=== PATIENT | female | born 1990 | race Caucasian/White ===

== ENCOUNTER 2018-06-15 18:35 | Emergency (ER) | payer SELFPAY ==
[~2018-06-15] VITALS: Ht 165.1 cm; Wt 72.6 kg
[2018-06-15] MEDS ORDERED: FAMOTIDINE 20 MG (PEPCID) TABLET PO STA (19:39)
[2018-06-15] MEDS ORDERED: LACTATED RINGERS 1,500 ML IV PRN (19:45)
[2018-06-15] MEDS ORDERED: KETOROLAC 30 MG/ML VIAL IVP ONE (19:45)
[2018-06-15] MEDS ORDERED: ANTACID SUSP 30 ML UDC (MYLANTA) PO ONE (19:45)
[2018-06-15] MEDS ORDERED: ONDANSETRON 4 MG/2 ML (SDV) Z0FRAN IVP ONE (19:45)
[2018-06-15] MEDS ORDERED: LIDOCAINE 2% VISCOUS 15 ML UDC PO ONE (19:45)
--- NOTE | 2018-06-15 19:47 | ED Syncope ---
General Chief Complaint: Dizziness/Syncope Stated Complaint: HIGH BP, SHAKY, NAUSEA Nursing Triage Note: pt states dizziness started today at work at 1630, felt like she was going to pass out, went to urgent care and b/p was 180, instructed to come to ed. pt states she has had several of these episodes today and feels "lifeless". Source of Information: Patient Exam Limitations: No Limitations (ADELINE KRUEGER) History of Present Illness Date Seen by Provider: Jun 15, 2018 Time Seen by Provider: 19:30 Initial Comments Patient presents to ER by private conveyance with chief complaint of brown out near syncope episode on her way home from work today. She said she was diagnosed about a week ago with influenza along with Her 2-year-old daughter and she still having SYMPTOMS. She does not have insurance so she did not pickle processor the Tamiflu. She's been using Tylenol and ibuprofen and borrowing her mom's Zofran up until about 3 or 4 days ago for the nausea. She still having some vomiting even up to today. She has a history of IBS with constipation type so she's not having any diarrhea. She's had several workup options presented by her primary care doctor but because she does not have a insurance source she has not pursued those yet. She's having some epigastric abdominal pain worse after vomiting. She's not taking any antacids. (ADELINE KRUEGER) Allergies and Home Medications Allergies Coded Allergies: amoxicillin (Verified Allergy, Unknown, rash, 06/15/18) Home Medications No Active Prescriptions or Reported Meds Patient Home Medication List Home Medication List Reviewed: Yes (ADELINE KRUEGER) Review of Systems Constitutional: chills, dizziness (near syncope); No fever; malaise EENTM: No ear discharge, No hearing loss Respiratory: No cough, No phlegm Cardiovascular: No chest pain, No palpitations Gastrointestinal: see HPI, abdominal pain; No constipation, No diarrhea; nausea , vomiting Genitourinary: No discharge, No dysuria : No Control/STD Prophylaxis: None Musculoskeletal: No back pain, No joint pain (ADELINE KRUEGER) Past Opcldpa-Jqnxhk-Nsyaqd Hx Patient Social History Alcohol Use: Denies Use Recreational Drug Use: Yes Drug of Choice: marijuana Smoking Status: Current Everyday Smoker Type Used: Cigarettes 2nd Hand Smoke Exposure: No Recent Foreign Travel: No Contact w/Someone Who Travel: No Recent Infectious Disease Expo: No Recent Hopitalizations: No Physical Abuse: No Sexual Abuse: No Mistreated: No Fear: No (ADELINE KRUEGER) Seasonal Allergies Seasonal Allergies: No (ADELINE KRUEGER) Past Medical History Surgeries: Yes Abdominal, Gallbladder Respiratory: No Cardiac: No Neurological: No Genitourinary: No Gastrointestinal: Yes Crohns Disease, Irritable Bowel Musculoskeletal: No Endocrine: No HEENT: No Cancer: No Psychosocial: No Integumentary: No Blood Disorders: No (ADELINE KRUEGER) Physical Exam Vital Signs Vital Signs - First Documented 06/15/18 19:10 Temp 97.3 Pulse 77 Resp 15 B/P (MAP) 154/98 (116) Pulse Ox 99 O2 Delivery Room Air ([facility]) Vital Signs Capillary Refill : Less Than 3 Seconds (ADELINE KRUEGER) Height, Weight, BMI Height: 5'5.00" Weight: 160lbs. oz. 72.627456li; BMI Method:Stated General Appearance: WD/WN, Mild Distress HEENT: PERRL/EOMI, Normal ENT Inspection, Pharynx Normal, Moist Mucous Membranes Neck: Full Range of Motion, Normal Inspection, Non Tender, Supple Cardiovascular: Regular Rate, Rhythm, No Edema, No Gallop, Normal Peripheral Pulses Respiratory: Chest Non Tender, Lungs Clear, Normal Breath Sounds, No Accessory Muscle Use, No Respiratory Distress Gastrointestinal: Normal Bowel Sounds, No Organomegaly, Soft, Tenderness ( epigastric tenderness to palpation) Extremities: Normal Capillary Refill, Normal Inspection, Non Tender, No Calf Tenderness, No Pedal Edema Neurologic/Psychiatric: Alert, Oriented x3, No Motor/Sensory Deficits, Normal Mood/Affect (ADELINE KRUEGER) Progress/Results/Core Measures Results/Orders Lab Results Laboratory Tests Test 06/15/18 19:45 06/15/18 20:08 Range/Units Urine Color YELLOW Urine Clarity CLEAR Urine pH 7.0 5-9 Urine Specific [place] <1.005 1.016-1.022 Urine Protein NEGATIVE NEGATIVE Urine Glucose (UA) NEGATIVE NEGATIVE Urine Ketones NEGATIVE NEGATIVE Urine Nitrite NEGATIVE NEGATIVE Urine Bilirubin NEGATIVE NEGATIVE Urine Urobilinogen 0.2 NORMAL MG/DL Urine Leukocyte Esterase NEGATIVE NEGATIVE Urine RBC (Auto) NEGATIVE NEGATIVE Urine RBC NONE /HPF Urine WBC NONE /HPF Urine Squamous Epithelial Cells 0-2 /HPF Urine Crystals NONE /LPF Urine Bacteria NONE /HPF Urine Casts NONE /LPF Urine Mucus NEGATIVE /LPF Urine Culture Indicated NO Urine Opiates Screen POSITIVE H NEGATIVE Urine Oxycodone Screen NEGATIVE NEGATIVE Urine Methadone Screen NEGATIVE NEGATIVE Urine Propoxyphene Screen NEGATIVE NEGATIVE Urine Barbiturates Screen NEGATIVE NEGATIVE Ur Tricyclic Antidepressants Screen NEGATIVE NEGATIVE Urine Phencyclidine Screen NEGATIVE NEGATIVE Urine Amphetamines Screen NEGATIVE NEGATIVE Urine Methamphetamines Screen NEGATIVE NEGATIVE Urine Benzodiazepines Screen NEGATIVE NEGATIVE Urine Cocaine Screen NEGATIVE NEGATIVE Urine Cannabinoids Screen POSITIVE H NEGATIVE White Blood Count 10.1 4.3-11.0 10^3/uL Red Blood Count 4.50 4.35-5.85 10^6/uL Hemoglobin 13.0 11.5-16.0 G/DL Hematocrit 40 35-52 % Mean Corpuscular Volume 88 80-99 FL Mean Corpuscular Hemoglobin 29 25-34 PG Mean Corpuscular Hemoglobin Concent 33 32-36 G/DL Red Cell Distribution Width 13.9 10.0-14.5 % Platelet Count 212 130-400 10^3/uL Mean Platelet Volume 10.8 H 7.4-10.4 FL Neutrophils (%) (Auto) 58 42-75 % Lymphocytes (%) (Auto) 34 12-44 % Monocytes (%) (Auto) 6 0-12 % Eosinophils (%) (Auto) 1 0-10 % Basophils (%) (Auto) 0 0-10 % Neutrophils # (Auto) 5.8 1.8-7.8 X 10^3 Lymphocytes # (Auto) 3.4 1.0-4.0 X 10^3 Monocytes # (Auto) 0.6 0.0-1.0 X 10^3 Eosinophils # (Auto) 0.1 0.0-0.3 10^3/uL Basophils # (Auto) 0.0 0.0-0.1 10^3/uL Sodium Level 141 135-145 MMOL/L Potassium Level 4.0 3.6-5.0 MMOL/L Chloride Level 107 98-107 MMOL/L Carbon Dioxide Level 23 21-32 MMOL/L Anion Gap 11 5-14 MMOL/L Blood Urea Nitrogen 7 7-18 MG/DL Creatinine 0.71 0.60-1.30 MG/DL Estimat Glomerular Filtration Rate > 60 BUN/Creatinine Ratio 10 Glucose Level 83 70-105 MG/DL Calcium Level 9.0 8.5-10.1 MG/DL Corrected Calcium 9.0 8.5-10.1 MG/DL Magnesium Level 2.1 1.8-2.4 MG/DL Total Bilirubin 0.4 0.1-1.0 MG/DL Aspartate Amino Transf (AST/SGOT) 13 5-34 U/L Alanine Aminotransferase (ALT/SGPT) 15 0-55 U/L Alkaline Phosphatase 86 40-136 U/L Total Protein 7.4 6.4-8.2 GM/DL Albumin 4.0 3.2-4.5 GM/DL Serum Test, Qualitative NEGATIVE NEGATIVE (JAVIER PATRICK DO) Medications Given in ED Current Medications Medications Dose Ordered Sig/Dot Route Start Time Stop Time Status Last Admin Dose Admin Al Hydrox/Mg Hydrox/Simethicone 30 ml ONCE ONCE PO 06/15/18 19:45 06/15/18 19:46 DC 06/15/18 20:12 30 ML Ketorolac Tromethamine 30 mg ONCE ONCE IVP 06/15/18 19:45 06/15/18 19:46 DC 06/15/18 20:12 30 MG Lactated Ringer's 1,500 ml @ 1,500 mls/hr PRN PRN IV 06/15/18 19:45 06/15/18 20:13 1,500 MLS/HR Lidocaine HCl 15 ml ONCE ONCE PO 06/15/18 19:45 06/15/18 19:46 DC 06/15/18 20:12 15 ML Ondansetron HCl 4 mg ONCE ONCE IVP 06/15/18 19:45 06/15/18 19:46 DC 06/15/18 20:12 4 MG (JAVIER PATRICK DO) Vital Signs/I&O 06/15/18 06/15/18 19:10 20:00 Temp 97.3 Pulse 77 62 78 58 Resp 15 B/P (MAP) 154/98 (116) 143/67 (92) 141/78 (99) 129/85 (100) Pulse Ox 99 O2 Delivery Room Air (JAVIER PATRICK DO) Blood Pressure Mean: 116 Progress Progress Note : Time: 19:46 Progress Note Plan to give her some Zofran and 20 mL/kg of fluids. We'll give her some Toradol for her headache. After her nausea subsides we'll give her a GI cocktail see if that helps her epigastric pain which I suspect is gastritis secondary to the vomiting. If we can control her nausea get her fluids back in various probably will fix her near syncope. We'll do a set of orthostatic vital signs. Patient appears to still have influenza symptoms. Basic labs. UA, UDS. (ADELINE KRUEGER) Progress Note : Progress Note Labs reviewed. Patient feels much better and is able to ambulate with steady gait. She is requesting discharge home. Patient remains hypertensive in the ED, 160/95. She denies history of non- related hypertension. Patient will be discharged from the emergency department with directions to stay home rest and to follow up with PCP the next 2 days for reevaluation of blood pressure. Return precautions reviewed. (JAVIER PATRICK DO) Departure Impression Primary Impression: Vertigo Additional Impressions: Near syncope Elevated blood pressure reading Disposition: HOME, SELF-CARE Condition: Stable Departure-Patient Inst. Decision time for Depature: 21:19 (JAVIER PATRICK DO) Referrals: IRMA STREET MD (PCP) Primary Care Physician Patient Instructions: Vertigo (a Type of Dizziness) (DC), Syncope (Fainting) ( DC) Add. Discharge Instructions: Please increase fluids and take Meclizine OTC every 6 hours as needed for dizziness. Check daily blood pressure and follow-up with your PCP in the next 1- 2 days for reevaluation. All discharge instructions reviewed with patient and/or family. Voiced understanding. Scripts No Active Prescriptions or Reported Meds Work/School Note: Family Work Note Patient Received Medical Care In the Emergency Department On: Jun 15, 2018 Patient Will Be Able to Return to Work/School On: Jun 17, 2018 Patient Restrictions: Activity as tolerated. ADELINE KRUEGER Jun 15, 2018 19:47 JAVIER PATRICK DO Jun 15, 2018 21:21
[2018-06-15 20:00] VITALS: BP_SYST 129; BP_SYST 141; BP_SYST 143; BP_DIAS 67; BP_DIAS 78; BP_DIAS 85
[2018-06-15 20:02] LABS: BILIRUBIN,URINE NEGATIVE (NEGATIVE); CLARITY,URINE CLEAR; COLOR,URINE YELLOW; GLUCOSE, URINE (UA) NEGATIVE (NEGATIVE); KETONES,URINE NEGATIVE (NEGATIVE); LEUKOCYTE ESTERASE ,URINE NEGATIVE (NEGATIVE); NITRITE,URINE NEGATIVE (NEGATIVE); PROTEIN,URINE NEGATIVE (NEGATIVE); SQUAMOUS EPITHELIAL CELL,UR 0-2 /HPF; UROBILINOGEN,URINE 0.2 MG/DL (NORMAL)
[2018-06-15 20:06] LABS: AMPHETAMINE SCREEN, URINE NEGATIVE (NEGATIVE); BARBITURATE SCREEN URINE NEGATIVE (NEGATIVE); BENZODIAZEPINES SCREEN URINE NEGATIVE (NEGATIVE); CANNABINOID SCREEN, URINE POSITIVE (NEGATIVE); COCAINE SCREEN URINE NEGATIVE (NEGATIVE); METHADONE STAT NEGATIVE (NEGATIVE); METHAMPHETAMINE SCREEN URINE S NEGATIVE (NEGATIVE); OPIATE SCREEN URINE POSITIVE (NEGATIVE); TRICYCLIC ANTIDEPRESSANTS SCRE NEGATIVE (NEGATIVE)
[2018-06-15 20:07] LABS: OXYCODONE STAT NEGATIVE (NEGATIVE); PROPOXYPHENE STAT NEGATIVE (NEGATIVE)
[2018-06-15 20:31] LABS: EOSINOPHILS % (AUTO) 1 % (0-10); HEMATOCRIT 40 % (35-52); LYMPHOCYTES % (AUTO) 34 % (12-44); MEAN CORPUSCULAR HEMOGLOBIN 29 PG (25-34); MEAN CORPUSCULAR HGB CONC 33 G/DL (32-36); MEAN CORPUSCULAR VOLUME 88 FL (80-99); MEAN PLATELET VOLUME 10.8 FL (7.4-10.4); MONOCYTES % (AUTO) 6 % (0-12); NEUTROPHILS % (AUTO) 58 % (42-75); PLATELET COUNT 212 10^3/uL (130-400); RED CELL DISTRIBUTION WIDTH 13.9 % (10.0-14.5); WHITE BLOOD COUNT 10.1 10^3/uL (4.3-11.0)
[2018-06-15 20:32] LABS: BASOPHILS % (AUTO) 0 % (0-10); EOSINOPHILS # (AUTO) 0.1 10^3/uL (0.0-0.3); LYMPHOCYTES # (AUTO) 3.4 X 10^3 (1.0-4.0); MONOCYTES # (AUTO) 0.6 X 10^3 (0.0-1.0); NEUTROPHILS # (AUTO) 5.8 X 10^3 (1.8-7.8)
[2018-06-15 20:52] LABS: ALANINE AMINOTRANSFERASE 15 U/L (0-55); ALKALINE PHOSPHATASE 86 U/L (40-136); BILIRUBIN,TOTAL 0.4 MG/DL (0.1-1.0); BUN/CREATININE RATIO 10; CARBON DIOXIDE 23 MMOL/L (21-32); CHLORIDE 107 MMOL/L (98-107); CREATININE SERUM 0.71 MG/DL (0.60-1.30); GFR ESTIMATED > 60; GLUCOSE 83 MG/DL (70-105); MAGNESIUM 2.1 MG/DL (1.8-2.4); SODIUM 141 MMOL/L (135-145)
[2018-06-15 20:53] LABS: TOTAL PROTEIN 7.4 GM/DL (6.4-8.2)
[2018-06-15 21:34] VITALS: BP 136/74
== END 2018-06-15 21:34 | disposition home or self-care (01) ==
LOC: ER FS 18:37
DX: R55 Syncope and collapse (principal); R42 Dizziness and giddiness; R03.0 Elevated blood-pressure reading, without diagnosis of hypertension; K58.9 Irritable bowel syndrome, unspecified; F12.10 Cannabis abuse, uncomplicated; F17.210 Nicotine dependence, cigarettes, uncomplicated; Z98.890 Other specified postprocedural states; Z87.19 Personal history of other diseases of the digestive system; Z88.0 Allergy status to penicillin
CPT/HCPCS: 36415; 80053; 80306; 81000; 83735; 84703; 85025; 96361; 96374; 96375

== ENCOUNTER 2018-12-14 15:19 | Emergency (ER) | payer BC, OTHER ==
[~2018-12-14] VITALS: Ht 165 cm; Wt 81.6 kg
--- NOTE | 2018-12-14 16:28 | NUR ---
Nurse of Jessica Ferguson APRN called and said that when they had EKG over there she was "dipping into 50s (52-54)". They were worried about a clot.
[2018-12-14] MEDS ORDERED: KETOROLAC 60 MG/2 ML VIAL IM ONE (18:15)
--- NOTE | 2018-12-14 18:17 | ED General ---
General Chief Complaint: Cardiac/General Problems Stated Complaint: ARRHYTHMIA Nursing Triage Note: Pt was sent over by [facility] for bradycardia. Pt was alert, oriented and ambulatory at arrival. Pt stated that 3 months ago she almost blacked out and went to and had BP of 200/180. Pt stated she was sent out to ER and since then she has had high blood pressure and anxiety that happens every day. Pt was being seen in [facility] for rash on right shoulder. They did orthostatic bp and said she had pulse of 68, 64,and 76. While she was there her BP was 150/80, 161/114, 161/92 and 136/84. Pt is in sinus rhythm and has normal pulse in the 70s. Nursing Sepsis Screen: No Definite Risk Source of Information: Patient, Family (mom) Exam Limitations: No Limitations History of Present Illness Date Seen by Provider: Dec 14, 2018 Time Seen by Provider: 17:49 Initial Comments Pt here with mom from urgent care with multiple complaints of htn 150 systolic and low HR in 55-65 range and chronic back pain. She went to the clinic for a rash on the left neck that has two blisters opened up on it. it julio and itches. She takes tylenol and occ ibuprofen for her back pain. She doesn't want anything that makes her sleepy as she has kids to take care of. Allergies and Home Medications Allergies Coded Allergies: amoxicillin (Verified Allergy, Unknown, rash, 06/15/18) Home Medications No Active Prescriptions or Reported Meds Patient Home Medication List Home Medication List Reviewed: Yes Review of Systems Review of Systems Constitutional: No chills, No diaphoresis EENTM: No ear discharge, No ear pain Respiratory: No cough, No dyspnea on exertion Cardiovascular: No chest pain, No edema, No Hx of Intervention, No palpitations Gastrointestinal: No abdominal pain, No constipation, No diarrhea, No nausea Genitourinary: No dysuria, No frequency Musculoskeletal: No back pain, No joint pain Past Jwtcjzl-Uiqrwi-Zcnyom Hx Patient Social History Alcohol Use: Denies Use Recreational Drug Use: Yes Drug of Choice: marijuana Smoking Status: Current Everyday Smoker Type Used: Cigarettes 2nd Hand Smoke Exposure: No Recent Foreign Travel: No Contact w/Someone Who Travel: No Recent Infectious Disease Expo: No Recent Hopitalizations: No Physical Abuse: No Sexual Abuse: No Mistreated: No Fear: No Seasonal Allergies Seasonal Allergies: No Past Medical History Surgeries: Yes Abdominal, Gallbladder Respiratory: No Cardiac: No Neurological: No Genitourinary: No Gastrointestinal: Yes Crohns Disease, Irritable Bowel Musculoskeletal: No Endocrine: No HEENT: No Cancer: No Psychosocial: No Integumentary: No Blood Disorders: No Physical Exam Vital Signs Vital Signs - First Documented 12/14/18 15:48 Temp 37.2 Pulse 82 Resp 15 B/P (MAP) 144/87 (106) Pulse Ox 97 O2 Delivery Room Air Capillary Refill : Less Than 3 Seconds Height, Weight, BMI Height: 5'5.00" Weight: 160lbs. oz. [id number]; 29.00 BMI Method:Stated General Appearance: No Apparent Distress, WD/WN Eyes: Bilateral Eye Normal Inspection, Bilateral Eye PERRL, Bilateral Eye EOMI HEENT: PERRL/EOMI, Moist Mucous Membranes Neck: Normal Inspection, Limited Range of Motion (splinting secondary to pain in her back) Respiratory: Lungs Clear, Normal Breath Sounds, No Accessory Muscle Use, No Respiratory Distress Cardiovascular: Regular Rate, Rhythm, No Edema, Normal Peripheral Pulses Extremity: Normal Capillary Refill, No Pedal Edema Neurologic/Psychiatric: Alert, Oriented x3 Skin: Normal Color, Warm/Dry Progress/Results/Core Measures Suspected Sepsis Recent Fever Within 48 Hours: No Infection Criteria Present: None New/Unexplained Altered Menta: No Sepsis Screen: No Definite Risk SIRS Temperature: Pulse: 82 Respiratory Rate: 15 Blood Pressure 144 /87 Mean: 106 Results/Orders My Orders Orders - ADELINE KRUEGER Ketorolac Injection (Toradol Injection) (12/14/18 18:15) Ketorolac Injection (Toradol Injection) (12/14/18 18:30) Ketorolac Injection (Toradol Injection) (12/14/18 18:21) Medications Given in ED Current Medications Medications Dose Ordered Sig/Dot Route Start Time Stop Time Status Last Admin Dose Admin Ketorolac Tromethamine 30 mg ONCE ONCE IVP 12/14/18 18:30 12/14/18 18:31 DC 12/14/18 18:39 30 MG Vital Signs/I&O 12/14/18 12/14/18 15:48 18:50 Temp 37.2 37.1 Pulse 82 66 Resp 15 19 B/P (MAP) 144/87 (106) 141/83 Pulse Ox 97 97 O2 Delivery Room Air Room Air Capillary Refill : Less Than 3 Seconds Blood Pressure Mean: 106 Progress Note : Time: 18:15 Progress Note Patient presented to urgent care for a rash and some got wrapped up in her 3-month-old history of syncopal episode. She had never followed up with primary care and we have advised her to do this. She does not have any acute presentatio n for her syncope today. Her heart rate in the 50s is physiologically acceptable for 28-year-old female. She's been in the 55-65 range with no problems. Orthostatics are negative. She does not have any syncopal or presyncopal episodes today. Her rash with blistering pain and burning could be from varicella herpes zoster. We have offered acyclovir which she has declined. We have offered gabapentin for the pain which she has declined. She says she has pain in her back would like something for that so we have offered Toradol which she is accepted. We have encouraged her to use NSAIDs, Tylenol, topical creams heat and ice. I would probably avoid oral steroids if we suspect she has shingles. Topical steroids for her neck would be fine. She says she already has a prescription ordered to [facility]. We have discussed and offered to do labs and EKG to help workup her on concerning hypertension in the 150s systolic but encouraged her that we are unlikely to find any emergent source of her symptoms and that primary care would be the next appropriate place to start longitudinal workup for her symptoms and findings. She agrees with this plan and says she really did not want come to the ER in the first place. We have ordered Toradol for her back pain and she is going to follow up with Dr. Street. Departure Impression Primary Impression: Rash and nonspecific skin eruption Additional Impressions: Back pain Qualified Codes: M54.9 - Dorsalgia, unspecified; G89.29 - Other chronic pain HTN (hypertension) with goal to be determined Disposition: 01 HOME, SELF-CARE Condition: Stable Departure-Patient Inst. Decision time for Depature: 18:15 Referrals: IRMA STREET MD (PCP) Primary Care Physician SHERINE GOLDMAN MD (Family) Primary Care Physician Patient Instructions: Low Back Pain (DC), Skin Rash Add. Discharge Instructions: please follow up with Dr Street. Return to the ER if you have difficulty breathing, chest pain or other concerns. Tracking your resting blood pressure when you are no longer hurting and at rest can be helpful. All discharge instructions reviewed with patient and/or family. Voiced understanding. Scripts No Active Prescriptions or Reported Meds ADELINE KRUEGER Dec 14, 2018 18:17
[2018-12-14] MEDS ORDERED: KETOROLAC 30 MG/ML VIAL ONE (18:21)
[2018-12-14] MEDS ORDERED: KETOROLAC 30 MG/ML VIAL IVP ONE (18:30)
[2018-12-14 18:50] VITALS: BP 141/83
== END 2018-12-14 18:50 | disposition home or self-care (01) ==
LOC: EDUNIT# 15:19 → ER FS 15:22
DX: R21 Rash and other nonspecific skin eruption (principal); M54.9 Dorsalgia, unspecified; I10 Essential (primary) hypertension; F41.9 Anxiety disorder, unspecified; F17.210 Nicotine dependence, cigarettes, uncomplicated; K58.9 Irritable bowel syndrome, unspecified; Z88.0 Allergy status to penicillin
CPT/HCPCS: 93005; 96374

== ENCOUNTER → 2022-01-07 | Outpatient (CLI) | payer BC ==
[2022-01-07 14:33] VITALS: BP 156/81
--- NOTE | 2022-01-07 14:58 | Cardiology Stress Test Report ---
Stress Test Report Date of Procedure/Referring: Date of Procedure: Jan 07, [address] MD Admitting Physician Admitting Physician: Attending Physician: Mane Fernandez MD Indications: CP Baseline Heart Rate: 69 Baseline Blood Pressure: Blood Pressure Systolic: 156 Blood Pressure Diastolic: 81 Baseline EKG: Baseline EKG: NSR Summary/Conclusion: Summary: In summary, the patient started exercising with a baseline heart rate, blood pressure and EKG mentioned above Patient was able to exercise for a total of 11 minutes on Randal protocol, METs 12.1 Maximum heart rate 157 Maximum blood pressure 226/84 Stress EKG, Minimal nondiagnostic changes Recovery EKG , Return to baseline Conclusion: 1. Good exercise tolerance for a total of 11 minutes on Randal protocol, 12.1 METs, achieving 83 percent of maximum expected heart rate 2. Minimal nondiagnostic EKG changes with exercise returned to baseline during recovery 3. Occasional PVCs noted during recovery. Copy Copies To 1: IRMA STREET MD, BASHAR J MD Jan 07, 2022 14:58
== END ==
LOC: CARD 14:14
PROVIDERS: ATTEND Internal Medicine Cardiovascular Disease
DX: R07.9 Chest pain, unspecified (principal)
CPT/HCPCS: 93017